=== PATIENT | male | born 1995 | race Caucasian/White ===

== ENCOUNTER 2017-07-28 07:29 | Emergency (ER) | payer OTHER ==
[~2017-07-28] VITALS: Ht 182.9 cm; Wt 81.6 kg
--- OUTSIDE RECORDS SUMMARY | 2017-07-28 07:50 | External Medical Summary Rpt | CCD ---
Demographics Preferred Language Turkmen Marital Status Unknown Church Affiliation Unknown Race Unknown Ethnic Group Unknown Author Author KAI Address Unknown Phone [email or web address] Purpose Continuity of Care Document - through 2016
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
--- OUTSIDE RECORDS SUMMARY | 2017-07-28 07:50 | External Medical Summary Rpt | CCD ---
Demographics Preferred Language Peruvian Marital Status Unknown Taoist Affiliation Unknown Race Unknown Ethnic Group Unknown Author Author KAI Address Unknown Phone [email or web address] Purpose Continuity of Care Document - through 2016
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
--- OUTSIDE RECORDS SUMMARY | 2017-07-28 07:52 | External Medical Summary Rpt | CCD ---
Demographics Preferred Language Frisian Marital Status Unknown Anabaptism Affiliation Unknown Race Unknown Ethnic Group Unknown Author Author , KAI Organization KAI Address Unknown Phone Immunization Unable to retrieve immunization data due to connection failure with Immunization Registry. Please try again later.
--- OUTSIDE RECORDS SUMMARY | 2017-07-28 07:52 | External Medical Summary Rpt | CCD ---
Demographics Preferred Language Estonian Marital Status Unknown Taoist Affiliation Unknown Race Unknown Ethnic Group Unknown Author Author , KAI Organization KAI Address Unknown Phone Immunization Unable to retrieve immunization data due to connection failure with Immunization Registry. Please try again later.
--- OUTSIDE RECORDS SUMMARY | 2017-07-28 07:52 | External Medical Summary Rpt ---
Author Author K[employer], [employer] Organization [employer] Address Unknown Phone Unavailable Results CHLAMYDIA AND GONORRHEA TESTING Observa Value Referen Units Interpr Notes Date tion ce etation Range COLLECT RN No No No No Aug 03 OR informa informa informa informa 2013 tion in tion in tion in tion in 2:00 PM source source source source data data data data ETHNICI WHITE, No No No No Aug 03 TY NON-HIS informa informa informa informa 2013 PANIC tion in tion in tion in tion in 2:00 PM source source source source data data data data KIT 2013-11 No No No No Aug 03 EXPIRAT -28 informa informa informa informa 2013 ION tion in tion in tion in tion in 2:00 PM DATE source source source source data data data data SYMPTOM NO No No No No Aug 03 S informa informa informa informa 2013 tion in tion in tion in tion in 2:00 PM source source source source data data data data REASON VOLUNTE No No No No Aug 03 FOR ER/MEDI informa informa informa informa 2013 REQUEST PHOEBE tion in tion in tion in tion in 2:00 PM PROBLEM source source source source data data data data SPECIME URINE No No No No Aug 03 N informa informa informa informa 2013 SOURCE tion in tion in tion in tion in 2:00 PM source source source source data data data data PREGNAN NO No No No No Aug 03 T informa informa informa informa 2013 tion in tion in tion in tion in 2:00 PM source source source source data data data data CHART 402-51- No No No No Aug 03 NUMBER [id number] informa informa informa informa 2013 tion in tion in tion in tion in 2:00 PM source source source source data data data data Chlamyd NEGATIV No No No NEGATIV Aug 03 ia E informa informa informa E 2013 trachom tion in tion in tion in RESULT= 2:00 PM atis source source source WITHIN rRNA data data data NORMAL [Presen ce] in LIMITSP Unspeci OSITIVE fied specime RESULT= n by Probe & ABNORMA target LEQUIVO PHOEBE amplifi RESULT= cation method INDETER MINATEU NSATISF ACTORY RESULT= INVALID Neisser NEGATIV No No No NEGATIV Aug 03 ia E informa informa informa E 2013 gonorrh tion in tion in tion in RESULT= 2:00 PM oeae source source source WITHIN rRNA data data data NORMAL [Presen ce] in LIMITSP Unspeci OSITIVE fied specime RESULT= n by Probe & ABNORMA target LEQUIVO PHOEBE amplifi RESULT= cation method INDETER MINATEU NSATISF ACTORY RESULT= INVALID THE APTIMA COMBO 2 ASSAY IS NOT INTENDE D FOR THE EVALUAT ION OF SUSPECT EDSEXUA L ABUSE OR FOR OTHER MEDICO- LEGAL INDICAT IONS. FOR THOSE PATIENT S FORWHOM A FALSE POSITIV E RESULT MAY HAVE ADVERSE PSYCHO- SOCIAL IMPACT, [facility] MM[facility] RETESTI NG.\.br \This report contain s patient informa tion that must be protect ed in accorda nce with the Health Insuran ce Portabi lity and Account ability Act. CHLAMYDIA AND GONORRHEA TESTING Observa Value Referen Units Interpr Notes Date tion ce etation Range COLLECT RN No No No No Aug 03 OR informa informa informa informa 2013 tion in tion in tion in tion in 2:00 PM source source source source data data data data ETHNICI WHITE, No No No No Aug 03 TY NON-HIS informa informa informa informa 2013 PANIC tion in tion in tion in tion in 2:00 PM source source source source data data data data KIT 2013-11 No No No No Aug 03 EXPIRAT -28 informa informa informa informa 2013 ION tion in tion in tion in tion in 2:00 PM DATE source source source source data data data data SYMPTOM NO No No No No Aug 03 S informa informa informa informa 2013 tion in tion in tion in tion in 2:00 PM source source source source data data data data REASON VOLUNTE No No No No Aug 03 FOR ER/MEDI informa informa informa informa 2013 REQUEST PHOEBE tion in tion in tion in tion in 2:00 PM PROBLEM source source source source data data data data SPECIME URINE No No No No Aug 03 N informa informa informa informa 2013 SOURCE tion in tion in tion in tion in 2:00 PM source source source source data data data data PREGNAN NO No No No No Aug 03 T informa informa informa informa 2013 tion in tion in tion in tion in 2:00 PM source source source source data data data data CHART 402-51- No No No No Aug 03 NUMBER [id number] informa informa informa informa 2013 tion in tion in tion in tion in 2:00 PM source source source source data data data data Chlamyd Pending No No No No Aug 03 ia informa informa informa informa 2013 trachom tion in tion in tion in tion in 2:00 PM atis source source source source rRNA data data data data [Presen ce] in Unspeci fied specime n by Probe & target amplifi cation method Neisser Pending No No No \.br\Aug 03 ia informa informa informa is 2013 gonorrh tion in tion in tion in report 2:00 PM oeae source source source contain rRNA data data data s [Presen patient ce] in Unspeci informa fied tion specime that n by must be Probe & target protect ed in amplifi accorda cation nce method with the Health Insuran ce Portabi lity and Account ability Act.
--- OUTSIDE RECORDS SUMMARY | 2017-07-28 07:52 | External Medical Summary Rpt ---
[...] MAY HAVE ADVERSE PSYCHO- SOCIAL IMPACT, [facility] NG.\.br \This report contain s [...]
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
[2017-07-28] MEDS ORDERED: FLEXERIL10 MG PO (08:25)
[2017-07-28] MEDS ORDERED: ETODOLAC200 MG PO (08:26)
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
[2017-07-28 08:33] VITALS: BP 145/80
== END 2017-07-28 08:33 | disposition home or self-care (01) ==
LOC: ER 07:29
DX: S20.212A Contusion of left front wall of thorax, initial encounter (principal); S23.9XXA Sprain of unspecified parts of thorax, initial encounter; F17.210 Nicotine dependence, cigarettes, uncomplicated; V49.3XXA Car occupant (driver) (passenger) injured in unspecified nontraffic accident, initial encounter; Y92.414 Local residential or business street as the place of occurrence of the external cause